=== PATIENT | female | born 1990 | race Caucasian/White ===

== ENCOUNTER 2018-11-28 20:03 | Emergency (ER) | payer MEDICAID ==
[~2018-11-28] VITALS: Ht 157.5 cm; Wt 59.0 kg
[2018-11-28 20:08] VITALS: Ht 157.5 cm; Wt 59.0 kg
== END 2018-11-28 20:13 | disposition home or self-care (01) ==
LOC: ED 20:03
DX: F12.90 Cannabis use, unspecified, uncomplicated (principal); F10.10 Alcohol abuse, uncomplicated; R41.82 Altered mental status, unspecified

== ENCOUNTER 2018-12-23 13:17 | Emergency (ER) | payer MEDICAID ==
[~2018-12-23] VITALS: Ht 152.4 cm; Wt 52.2 kg
[2018-12-23 13:46] VITALS: BP 116/71; Ht 152.4 cm; Wt 52.2 kg
== END 2018-12-23 15:10 | disposition home or self-care (01) ==
LOC: ED 13:17
DX: G44.209 Tension-type headache, unspecified, not intractable (principal); Z98.890 Other specified postprocedural states